=== PATIENT | female | born 1955 | race Two or more races ===

== ENCOUNTER → 2022-03-18 | Emergency (ER) | payer OTHER ==
[~2022-03-18] VITALS: Ht 170.2 cm; Wt 81.6 kg
[~2022-03-18] MED LIST: ATORVASTATIN CA40 MG PO
== END | disposition home or self-care (01) ==
LOC: ER 17:24
DX: J06.9 Acute upper respiratory infection, unspecified (principal); E11.9 Type 2 diabetes mellitus without complications; E78.00 Pure hypercholesterolemia, unspecified; I10 Essential (primary) hypertension; Z20.822 Contact with and (suspected) exposure to COVID-19